=== PATIENT | male | born 1960 | race Caucasian/White ===

== ENCOUNTER → 2017-11-06 | Outpatient (CLI) | payer OTHER ==
[~2017-11-06] VITALS: Ht 170.2 cm; Wt 97.5 kg
[~2017-11-06] MED LIST: ASPIR 8181 MG PO; BIOTIN5000 MC1 PO; CELEBREX 200 M200 M1 PO; COLLAGEN PLUS1 EACH PO; CONCERTA18 M1 PO; COZAAR 50 MG TA50 M2 PO; CRESTOR40 MG PO; GLUCOPHAGE XR500 MG PO; JARDIANCE25 MG PO; LEVOXYL125 MCG PO; LOVAZA1000 MG PO; METOPROLOL TART25 MG PO; NIACIN500 MG PO; RITALIN10 MG PO; TRAMADOL 50 MG50 MG PO; VICTOZA0.6 MG/0.1 SUBQ; VITAMIN D5000 UNIT PO; [UNRECOGNIZED DRUG - OTHER] PO
--- NOTE | ~2017-11-06 | EKG ---
[place] [address] [facility] [place] [address] ELECTROCARDIOGRAM REPORT Name: CHRIS DAVIS Room #: 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1960 Requested By: Cyrus Swanson Order Number: [id number] MD: Yariel Long Measurements Intervals [place] Rate: 70 P: 29 TX: 187 QRS: -1 QRSD: 119 T: 29 QT: 391 QTc: 422 Interpretive Statements Sinus rhythm Nonspecific intraventricular conduction delay Cannot rule out inferior infarct, age indeterminate No previous ECG available for comparison Electronically Signed On 11-06-2017 8:18:58 CDT by Yariel Long [email or web address] <ELECTRONICALLY SIGNED> By: Yariel Long MD, [facility] 11/06/17817 7 0808 Yariel Long MD, FACC /EPI
--- NOTE | ~2017-11-06 | CATHLAB ---
[facility] [place] [address] INVASIVE PROCEDURE REPORT Name: CHRIS DAVIS [id number] Admission: 11/06/17 Attend Phys: Cyrus Swanson MD Discharge: Date of : 60 Date of Service: 11/06/17 1339 Report #: [id number] THIS REPORT FOR: //name// APPROVED REPORT Study performed: 11/06/2017 09:24:20 Patient Details Patient Status: Out-Patient Room #: The patient is a 57 year-old female Event Personnel Cyrus Swanson Christmas Bell Ringer, Renny Parker RN RN, Dago Winter RN, Becky Salmon Sandifer, David Monitor Procedures Performed Left Heart Cath w/or w/o Coronaries [id number] [facility] Indication Dyspnea, Positive stress test Risk Factors Hypercholesterolemia, Hypertension, Diabetes Procedure Narrative The Right Wrist^ was infiltrated with 1% Lidocaine subcutaneous anesthesia. A TRANSRADIAL SLENDER 6F GLIDESHEATH KIT #[id number] sheath was inserted into the Right Radial Artery^. Coronary angiography was performed using coronary diagnostic catheters. The right coronary system was accessed and visualized with a JR4 catheter. The left coronary system was accessed and visualized with a 5FR JL 3.5 #[id number] catheter. The left ventricle was accessed and visualized with a 5FR PIG 145 ANGLED #[id number] catheter. Left ventricular/Aortic Valve gradient assessed via catheter pullback. Left ventriculogram was performed in 30 degree projection. Closure device was deployed with a Fr VASC BAND R 24CM #[id number]. The patient tolerated the procedure well and there were no complications associated with the procedure. There was no hematoma. Intraoperative Conscious Sedation Sedation start time: 9.43 Case end Time: 10.07 Fentanyl --50 mcg Versed 1.5 mg Fluoro Time: 215.00 minutes [facility] [place] [address] INVASIVE PROCEDURE REPORT Name: CHRIS DAVIS Room #: REG [facility].#: [id number] Admission: 11/06/17 Attend Phys: Cyrus Swanson MD Discharge: Date of : 60 Date of Service: 11/06/17 1339 Report #: [id number] Dose: DAP 4956 cGycm2 594 mGy Contrast Type and Amount: Omnipaque 120 ml Coronary Angiography The patient's coronary anatomy is right dominant. Diagnostic Cath Left Main Patent vessel, with no flow-limiting lesions. LAD Moderate size caliber, traversing down the anterior wall and wrapping around the apex. There may be mild disease in the proximal and mid segment, less than 10%. Diagonal 1 Patent vessel, with no flow-limiting lesions. Diagonal 2 Patent vessel, with no flow-limiting lesions. Circumflex Patent vessel, with no flow-limiting lesions. OM1 Patent vessel, with no flow-limiting lesions. OM2 Patent vessel, with no flow-limiting lesions. Right Coronary Dominant vessel with ectatic areas in the proximal and distal segments. There is mild disease in the mid segment, 20%. R PDA Patent vessel, with no flow-limiting lesions. Left Ventriculography The left ventricle is normal in size with normal contractility. The left ventricular ejection fraction is estimated to be >55%. Hemodynamics The aortic pressure is 111/79 mmHg with a mean of 88 mmHg. The left ventricular pressure is 126/14 mmHg with a mean of mmHg. The left ventricular end diastolic pressure is 21 mmHg. Conclusion 1. Mild CAD in the LAD and RCA. 2. Right dominant system. 3. Normal LV systolic function. 4. Recommend medical therapy. <ELECTRONICALLY SIGNED> By: Cyrus Swanson MD 11/06/17 1339 1339 1339 Cyrus Swanson MD /INF
[2017-11-06 08:19] LABS: HEMOGLOBIN 15.3 gm/dL (12.0-15.0); MCH 31.7 pg (26.0-34.0); MCHC 34.8 g/dL (28.0-37.0); RBC 4.83 mil/uL (4.20-5.00); RDW 12.9 % (10.5-14.5); WBC 7.8 thou/uL (4.0-11.0)
[2017-11-06 08:34] LABS: CALCIUM 9.2 mg/dL (8.5-10.1); CREATININE 0.9 mg/dL (0.6-1.0); POTASSIUM 3.8 mmol/L (3.5-5.1)
[2017-11-06 08:41] VITALS: BP 149/74
== END | disposition home or self-care (01) ==
LOC: CATH 07:37 → EDSEX 07:37
PROVIDERS: Internal Medicine Cardiovascular Disease
DX: I25.10 Atherosclerotic heart disease of native coronary artery without angina pectoris (principal); I10 Essential (primary) hypertension; E78.00 Pure hypercholesterolemia, unspecified; E11.9 Type 2 diabetes mellitus without complications; Z79.899 Other long term (current) drug therapy; Z98.890 Other specified postprocedural states; Z79.82 Long term (current) use of aspirin; Z87.891 Personal history of nicotine dependence

== ENCOUNTER → 2020-12-01 | Outpatient (CLI) | payer OTHER | LOC: SJCVCIMAG 07:41 | PROVIDERS: ATTEND Internal Medicine Cardiovascular Disease | DX: I25.10 Atherosclerotic heart disease of native coronary artery without angina pectoris (principal); I10 Essential (primary) hypertension; E78.5 Hyperlipidemia, unspecified ==